=== PATIENT | female | born 1985 | race Caucasian/White ===

== ENCOUNTER 2017-05-02 20:17 | Emergency (ER) | payer OTHER ==
--- NOTE | 2017-05-02 20:48 | XR ---
EXAMINATION TYPE: XR ankle complete RT DATE OF EXAM: 05/02/2017 COMPARISON: NONE HISTORY: Pain TECHNIQUE: 3 views FINDINGS: Ankle mortise is anatomic. I see no fracture nor dislocation. Joint spaces are normal. IMPRESSION: Negative right ankle exam
--- NOTE | 2017-05-02 21:03 | ED ---
Fall HPI - General Chief Complaint: Fall Stated Complaint: Fall/Foot Pain Time Seen by Provider: 05/02/17 20:26 Source: patient, RN notes reviewed Mode of arrival: wheelchair - History of Present Illness Initial Comments: This is a 31-year-old female who presents to the emergency department with chief complaint of right foot injury. Patient states that this morning at approximately 6:30 AM she slipped on a patch of ice and landed directly on her right side. She denies any other injury besides the right foot. She has been able to ambulate and bear weight normally. However, throughout the day she has noticed progressive swelling and pain. States that she has been routinely taking Tylenol and ibuprofen. She is been resting and elevating as well. Denies fever, chills, nausea or vomiting, constipation or diarrhea, numbness or tingling, headache or vision changes. - Related Data Home Medications Medication Instructions Recorded Confirmed No Known Home Medications [No 05/02/17 05/02/17 Known Home Medications] Allergies Allergy/AdvReac Type Severity Reaction Status Date / Time codeine Allergy Dyspnea Verified 05/02/17 20:47 Review of Systems ROS Statement: Those systems with pertinent positive or pertinent negative responses have been documented in the HPI. ROS Other: All systems not noted in ROS Statement are negative. Past Medical History Past Medical History: No Reported History Additional Past Medical History / Comment(s): PCOS History of Any Multi-Drug Resistant Organisms: None Reported Past Surgical History: No Surgical Hx Reported Additional Past Surgical History / Comment(s): endometriosis Past Psychological History: No Psychological Hx Reported Smoking Status: Current some day smoker Past Alcohol Use History: Occasional Past Drug Use History: None Reported General Exam - General Exam Comments Initial Comments: General: Awake and alert, well-developed; in no apparent distress. HEENT: Head atraumatic, normocephalic. Pupils are equal, round and reactive to light. Extraocular movements intact. Neck: Supple. Normal ROM. Cardiovascular: Regular rate and rhythm. No murmurs, rubs or gallops. Chest symmetrical. Respiratory: Lungs clear to auscultation bilaterally. No wheezes, rales or rhonchi. Normal respiratory effort with no use of accessory muscles. Musculoskeletal: Normal active range of motion of right ankle and toes. There is mild soft tissue swelling noted distal to the lateral malleolus. Tenderness on palpation of the metatarsals 4 and 5. Sensation is intact. Pedal pulses are 2+ equal and palpable bilaterally. Skin: [place], warm and dry without rashes or lesions. Neurological: Alert and oriented x3. CN II-XII grossly intact. Speech is fluent and answers are appropriate. No focal neuro deficits. Psychiatric: Normal mood and affect. No overt signs of depression or anxiety noted. Limitations: no limitations Course Vital Signs 05/02/17 20:17 Temperature 97.9 F Pulse Rate 106 H Respiratory 18 Rate Blood Pressure 124/56 O2 Sat by Pulse 100 Oximetry Medical Decision Making - Medical Decision Making This is a 31-year-old female who presents to the emergency department with chief complaint of right foot injury. Patient has normal range of motion. Unable to bear full weight and ambulate due to pain. Right foot and ankle x- rays were negative for any acute fractures or dislocations. Fracnisco bandage was placed and patient is neurovascularly intact. She will be discharged home with recommendation to ice, rest, elevate and use ibuprofen or Tylenol as needed for pain. Patient is in agreement and voices understanding. All questions were answered. - Radiology Data Radiology results: report reviewed Right ankle x-ray impression: Negative right ankle exam. X-ray right foot impression: Negative right foot exam. Disposition Clinical Impression: Contusion of right foot Disposition: HOME SELF-CARE Condition: Good Instructions: Foot Contusion (ED) Additional Instructions: Please rest, ice, elevate and take Tylenol or ibuprofen as needed. Please follow up with primary care provider within 1-2 days. Return to emergency department if symptoms should worsen or any concerns arise. Referrals: Magdi Pierre MD [Primary Care Provider] - 1-2 days Time of Disposition: 21:46
--- NOTE | 2017-05-02 21:32 | XR ---
EXAMINATION TYPE: XR foot complete RT DATE OF EXAM: 05/02/2017 COMPARISON: NONE HISTORY: Pain TECHNIQUE: 3 views FINDINGS: Metatarsals are intact. I see no fracture nor dislocation. There are no erosions. IMPRESSION: Negative right foot exam.
[2017-05-02 23:37] VITALS: BP 124/56; PULSE 106; RESP 18; TEMP 97.9
== END 2017-05-02 21:49 | disposition home or self-care (01) ==
LOC: EC 20:17
DX: S90.31XA Contusion of right foot, initial encounter (principal); F17.200 Nicotine dependence, unspecified, uncomplicated; Z88.5 Allergy status to narcotic agent; W00.0XXA Fall on same level due to ice and snow, initial encounter
CPT/HCPCS: 99283

== ENCOUNTER 2017-05-14 15:46 | Emergency (ER) | payer OTHER ==
[2017-05-14 16:29] VITALS: BP 114/59; PULSE 94; RESP 20; TEMP 98.9
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
--- NOTE | 2017-05-14 16:56 | XR ---
EXAMINATION TYPE: XR shoulder complete LT DATE OF EXAM: 05/14/2017 COMPARISON: NONE HISTORY: Pain TECHNIQUE: 3 views FINDINGS: I see no fracture nor dislocation. Joint spaces are normal. There are no pathologic calcifi cations. IMPRESSION: Negative left shoulder exam.
--- NOTE | 2017-05-14 16:56 | XR ---
EXAMINATION TYPE: XR ribs RT w pa chest xray DATE OF EXAM: 05/14/2017 COMPARISON: Chest x-ray 03/30/2011 HISTORY: Pain TECHNIQUE: 5 views FINDINGS: Heart and mediastinum are normal. Lungs are clear. The right ribs appear intact. There is n o sign of pleural effusion or pneumothorax. IMPRESSION: Normal chest. Normal right ribs.
== END 2017-05-14 17:03 | disposition home or self-care (01) ==
LOC: EC 15:46
DX: S46.912A Strain of unspecified muscle, fascia and tendon at shoulder and upper arm level, left arm, initial encounter (principal); S20.211A Contusion of right front wall of thorax, initial encounter; F17.200 Nicotine dependence, unspecified, uncomplicated; Z88.5 Allergy status to narcotic agent; V89.2XXA Person injured in unspecified motor-vehicle accident, traffic, initial encounter; Y92.410 Unspecified street and highway as the place of occurrence of the external cause
CPT/HCPCS: 99284

== ENCOUNTER → 2024-02-13 | Outpatient (CLI) | payer BC ==
--- NOTE | 2024-02-14 18:26 | MR ---
EXAMINATION TYPE: MR brain wo/w con DATE OF EXAM: 02/13/2024 8:35 PM CLINICAL INDICATION: Female, 38 years old with history of MIGRAINE, DIZZINESS G43.909 R42; PHH, Migra geronimo, Dizziness, Numbness in Hands COMPARISON: 04/08/2015 TECHNIQUE: Multi planar, multi sequence imaging was performed through the brain including: T1, T2, In version recovery, susceptibility weighted imaging and gradient echo imaging and Diffusion weighted im aging. The patient was then given intravenous contrast and multi planar, T1 fat-saturation images wer e obtained. IV Contrast: 6 cc Gadavist FINDINGS: The hernandez-white junctions, ventricular system, basal cisterns appear unremarkable. Diffusion-weighted imaging shows no evidence of restricted diffusion to suggest acute/subacute infarct. Intracranial ar terial flow voids are maintained. Midline structures show no abnormality. The susceptibility weighted images focus of blooming artifact in the left caudate nucleus compatible with microhemorrhage.. Afte r administration of gadolinium, no abnormal enhancement is seen. The bone marrow signal is within normal limits. Paranasal sinuses and mastoid air cells: No significant paranasal sinus disease. Visualized orbits: Orbital contents are intact. IMPRESSION: No evidence of intracranial mass, acute/subacute infarct, or abnormal enhancement. [facility], , 02/14/2024 6:24 PM
== END | disposition home or self-care (01) ==
LOC: RADMRIMAIN 20:15
PROVIDERS: ATTEND Psychiatry & Neurology Neurology
CPT/HCPCS: 70553

== ENCOUNTER → 2024-05-22 | Outpatient (CLI) | payer BC ==
--- NOTE | 2024-05-28 07:26 | MM ---
Reason for Exam: Screening (asymptomatic). Baseline mammogram. Patient History: Menarche at age 14. First Full-Term at age 20. Last menstrual period: 05/08/2024 Risk Values: Jessica 5 year model risk: 0.3%. NCI Lifetime model risk: 7.4%. Prior Study Comparison: Patient's first Mammogram. No prior studies available for comparison. Tissue Density: The breasts are heterogeneously dense, which may obscure small masses. Findings: Analyzed By CAD. There is a 5 mm oval nodule located posterior lateral left cc view that may represent a small low axillary tail or intramammary lymph node but for which further evaluation is recommended. Possible two correlating areas on the MLO view, one located superiorly and one along the retroareolar plane. Otherwise, no significant mass, suspicious microcalcification, or other discrete abnormality is seen. Overall Assessment: Incomplete: need additional imaging evaluation, BI-RAD 0 Management: Special View Mammogram of the left breast. Diagnostic Breast Ultrasound of the left breast. [facility] will attempt to contact patient to return for supplemental views and ultrasound if indicated. [facility], , 05/22/2024 8:08 AM. Electronically signed and approved by: Laverne Calles M.D. Radiologist
== END | disposition home or self-care (01) ==
LOC: RADMAMWWP 07:48
PROVIDERS: ATTEND Family Medicine
DX: Z12.31 Encounter for screening mammogram for malignant neoplasm of breast (principal); R92.333 Mammographic heterogeneous density, bilateral breasts; Z80.3 Family history of malignant neoplasm of breast
CPT/HCPCS: 77063; 77067